=== PATIENT | female | born 1955 | race Caucasian/White ===

== ENCOUNTER 2017-03-31 09:16 | Inpatient (IN) ==
[2017-03-31] MEDS ORDERED: CeFAZolin Syr 2,000MG/20 ML 2,000 MG/20 ML SYRINGE IVPB ONE (09:37)
[2017-03-31] MEDS ORDERED: Lidocaine -MPF 1% 2 ML VIAL ID ONE (09:37)
[2017-03-31] MEDS ORDERED: Albuterol 2.5 MG/3 ML NEBULIZER IH ONE (09:37)
[2017-03-31] MEDS ORDERED: Ringers Solution, Lactated 1,000 ML IVC SCH ×2 (09:45→16:44)
[2017-03-31] MEDS ORDERED: *HR* Promethazine 25 MG/ML VIAL IVP PRN (10:14)
[2017-03-31] MEDS ORDERED: *HR* Labetalol 20 MG/4 ML SYRINGE IVP PRN (10:14)
[2017-03-31] MEDS ORDERED: *HR* HYDROmorphone (PF) 1 MG/ML SYRINGE IVP PRN (10:14)
[2017-03-31] MEDS ORDERED: *HR* FentaNYL (PF) 100 MCG/2 ML VIAL ONE (10:16)
[2017-03-31] MEDS ORDERED: *HR* Propofol 200 MG/20 ML VIAL IVP ONE (10:17)
[2017-03-31] MEDS ORDERED: *HR* Midazolam HCl 2 MG/2 ML VIAL ONE ×2 (10:17→12:14)
[2017-03-31] MEDS ORDERED: Lidocaine -MPF 2% 2 ML VIAL ONE (10:18)
--- NOTE | 2017-03-31 10:19 | Anesthesia Evaluation PreOp ---
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 History: CVA Other Medical History: Diabetes Type II, GERD, Other Anesthesia History: No Prior Anesthetic Complications, Past Anesthesia : No Alcohol Use: none Drug use: marijuana Medications and Allergies Aspirin Enteric Coated [Aspirin EC] 81 mg PO DAILY 01/23/15 [History] Calcium Carbonate/Vitamin D2 [Ra Oyster Shell-Vitamin D Tab] 1 tab PO BID [History] Carvedilol 3.125 mg PO BID 12/24/15 [History] Cholecalciferol (D-3) [Vitamin D] 2,000 unit PO DAILY 12/24/15 [History] Fenofibrate [Lofibra] 160 mg PO DAILY 12/24/15 [History] Fluticasone Propionate Nasal [Flonase] 50 mcg NS DAILY 12/24/15 [History] Isosorbide MONOnitrate (24 HR) [Imdur] 30 mg PO DAILY 12/24/15 [History] Lisinopril [Zestril] 40 mg PO DAILY 12/24/15 [History] Meloxicam 15 mg PO DAILY 12/24/15 [History] Montelukast [Singulair] 10 mg PO DAILY 12/24/15 [History] Omeprazole [PriLOSEC] 20 mg PO DAILY 12/24/15 [History] Sertraline [Zoloft] 100 mg PO DAILY 12/24/15 [History] Simvastatin [Zocor] 40 mg PO DAILY 12/24/15 [History] hydroCHLOROthiazide [Hydrochlorothiazide] 25 mg PO DAILY 12/24/15 [History] metFORMIN [Glucophage] 1,000 mg PO BIDWM 12/24/15 [History] HYDROcodone/Acet 5/325 mg [[place] 5-325 mg] 1 tab PO Q6H PRN #15 tab 04/26/16 [Rx ] Ciprofloxacin [Cipro] 500 mg PO BID #20 tablet 05/09/16 [Rx] Promethazine/Dextromethorphan [Promethazine-Dm Syrup] 5 ml PO Q4-6H #240 syrup 05/09/16 [Rx] 3 Allergy/AdvReac Type Severity Reaction Status Date / Time No Known Allergies Allergy Verified 03/24/17 11:55 - Meds/Allergy Pre-op Review Medications Reviewed: Yes Allergies Reviewed: Yes Beta Blockers on Current Med List: Yes If Beta Blockers taken, Date/Time (Last Dose taken): 08:00 03/31/2017 Anesthesia Results - Labs Laboratory Tests 03/14/17 03/14/17 03/24/17 10:57 10:57 12:48 WBC 9.1 Hgb 14.1 Hct 43.3 Plt Count 344 INR 0.9 Sodium 139 Potassium 4.0 Chloride Carbon Dioxide BUN Creatinine 1.09 03/24/17 12:48 WBC Hgb Hct Plt Count INR Sodium Potassium Chloride 108 H Carbon Dioxide 23 BUN 13 Creatinine Echo 05/11/13 EF-55% Mild diastolic dysfunction No pulm Htn Normal wall motion - Imaging EKG: report reviewed (SR) Anesthesia Exam Vital Signs/O2 Sat, Most Current Temp Pulse Resp BP Pulse Ox 98.3 F 73 18 136/85 94 03/31/17 09:51 03/31/17 09:51 03/31/17 09:51 03/31/17 09:51 03/31/17 09:51
[2017-03-31] MEDS ORDERED: *HR* Rocuronium Bromide 50 MG/5 ML VIAL ONE (10:20)
[2017-03-31] MEDS ORDERED: Bacitracin 50,000 UNIT, Polymyxin B Sulfate 500,000 UNIT, Sodium Chloride IRRigation 1,... IR ONE (11:15)
--- NOTE | 2017-03-31 12:22 | History & Physical Report ---
Date of Encounter: 03/31/17 Time of Encounter: 12:21 24 Hour HP Update - Instructions Instructions: If the History and Physical is less than 30 days old and was completed prior to A.M. admission and or procedure and has NOT been updated on calendar day of procedure please complete this update prior to performing procedure. - Update Patient reports changes in Medical Condition: No Changes in examination, assessment, or condition: No Changes in Medication: No Preop tests/diagnostics Reviewed: Yes Pre-Op MRSA Screen: Negative Surgery Remains Indicated: Yes Consent for Planned Operative Procedure(s) Verified: Yes - Pre-Operative Checklist Preoperative Checklist Indicated: No Prophylactic Antibiotic Ordered: Yes Home Medications Include Beta Gudelia: Yes Beta Gudelia Taken Today (Day of Surgery): No Beta Gudelia Taken Yesterday (Day Prior to Surgery): Yes Is VTE Prophylaxis Indicated?: Yes
[2017-03-31] MEDS ORDERED: Acetaminophen IV 1,000 MG/100 ML INFUS..BTL ONE (12:39)
[2017-03-31] MEDS ORDERED: *HR* PHENYLEPHRINE 1,000 MCG/10 ML SYRINGE IVP ONE (12:40)
[2017-03-31] MEDS ORDERED: Propofol 500 MG/50 ML INFUS..BTL ONE (12:41)
[2017-03-31] MEDS ORDERED: *HR* Remifentanil 2 MG VIAL IVP ONE (12:41)
[2017-03-31] MEDS ORDERED: Ondansetron 4 MG/2 ML VIAL ONE (13:22)
[2017-03-31] MEDS ORDERED: Dexamethasone 4 MG/ML VIAL ONE ×2 (13:22→17:00)
[2017-03-31] MEDS ORDERED: *HR* Magnesium Sulfate 1 GM/2 ML VIAL ONE (14:30)
[2017-03-31] MEDS ORDERED: Ketorolac 30 MG/ML VIAL ONE (15:08)
[2017-03-31] MEDS ORDERED: Neostigmine Methylsulfate 3 MG/3 ML SYRINGE ONE (15:17)
[2017-03-31] MEDS ORDERED: *HR* HYDROmorphone 2 MG/ML SYRINGE ONE (15:25)
--- NOTE | 2017-03-31 15:47 | Orthopedic Operative Note ---
Date of procedure: 03/31/17 Pre-op diagnosis: Synovial cyst of lumbar facet joint, lumbar radiculopathy Post-op diagnosis: same Operation/Findings: Instrumented posterior spinal fusion L5-S1: The patient successfully underwent general endotracheal anesthesia. The patient was given antibiotics prior to the start of the procedure. Compression boots and stockings were used for deep vein thrombosis prophylaxis. A Walker catheter was placed. Leads for neuro monitoring were placed on the upper and lower extremities. This included the cranium. The neuro monitoring personnel confirmed there were satisfactory readings prior to the start of the procedure. The patient was turned prone on the Beto table. The back was prepped and draped in the usual sterile fashion. An incision was was marked and centered over the involved L5-S1 levels in the mid line. The incision was deepened through the lumbar fascia. Bovie cautery and Boland elevators were used to reflect the paraspinal musculature at the lateral extent of the transverse processes of the involved L5 and S1 levels. Meagan clamps were placed over the L5 spinous process. An intraoperative lateral fluorograph was obtained. A conversation was held between the surgeon and radiologist and both confirmed we had the correct operative levels. We then placed pedicle screws in standard fashion with the aid of fluoroscopy and anatomic landmarks. Briefly a starter awl was used. A gearshift was subsequently used to enter the corporate pilot hole via a transpedicular route into the vertebral body. The corporate pilot hole was tapped with an undersized instrument, and subsequently two 6.5 x 40 mm pedicle screws were placed unilaterally on the left side at the indicated L5-S1 level. The screws were tested with the aid of the neurologic monitoring staff via pedicle screw stimulation. All reading suggested there was no significant cortical wall breech. The screws were also evaluated fluoro- graphically and appeared to be in satisfactory position. We then turned our attention to the decompression portion of the procedure. We removed the supraspinous and interspinous ligaments and subsequently the insertion of the ligamentum flavum on the undersurface of the proximal L5 lamina was dislodged with a curette. We then removed the ligamentum flavum as well as undercut L5-S1 the facets at this level to decompress the lateral recesses. We also performed a L5 laminectomy. There was an extremely large synovial facet joint cyst on the right at L5-S1 impinging the thecal sac and traversing nerve root. This was removed and the facets were undercut at this level. After the decompression the foramen and traversing roots at this L5-S1 level were found to be free and patent. We also took part of the medial facets in order to aid in the decompression. . We then copiously irrigated the wound. We then decorticated the transverse processes at L5 and the proximal portion of the sacrum as well as the L5-S1 facet joints of the involved 5 S1 levels to aid in the posterolateral fusion. We placed autograft bone in the lateral gutters over these regions. We then placed rods within the screw heads of the involved L5-S1 levels and first locked the distal screws and then subsequently locked the proximal screws.s We then closed the wound in layers with 1 Vicryl for the fascia, 2-0 Vicryl. Subcutaneous tissue, and Dermabond was used for skin closure. Sterile dressings were placed over the wound. The patient was turned supine on a hospital bed and extubated. All sponge instruments and needle counts were correct at the end of the procedure. The patient tolerated the procedure well without complications. Anesthesia: KOKO Surgeon: Wes Lopez Jr Was there an assistant office manager present: No Estimated blood loss (cc): 125 Specimen: None Condition: stable Disposition: PACU
--- NOTE | 2017-03-31 16:33 | Anesthesia Evaluation Post Op ---
Date of Encounter: 03/31/17 Time of Encounter: 16:33 - Vital Signs Vital Signs: Vital Signs/O2 Sat, Most Current Temp Pulse Resp BP Pulse Ox 98.0 F 72 18 149/72 96 03/31/17 16:24 03/31/17 16:24 03/31/17 16:24 03/31/17 16:24 03/31/17 16:24 - Lungs Lungs: Clear Ascult./Percussion - Airway Airway: Non-obstructed - Cardiovascular Regular Rate - Mental Status Mental Status: Alert & Oriented, Answers Appropriately - Pain Pain Scale: 4 Pain Scale used: Numeric (1 - 10) - Nausea Vomiting Nausea Vomiting: Not Present - Hydration Hydration: Ice chips, Walker catheter - Discharge PostOp Status: Transfer Patient to floor
[2017-03-31] MEDS ORDERED: Naloxone 0.4 MG/ML INJ IVP PRN (16:44)
[2017-03-31] MEDS ORDERED: CeFAZolin Premix DUPLEX 2,000 MG/50 ML BAG IVPB SCH (16:44)
[2017-03-31] MEDS ORDERED: Ondansetron 4 MG/2 ML VIAL IVP PRN (16:44)
[2017-03-31] MEDS ORDERED: Acetaminophen 325 MG TABLET PO PRN (16:44)
[2017-03-31] MEDS: *HR* Metformin 500 MG TABLET PO SCH (17:25)
[2017-03-31] MEDS: VITAMIN D2 PO SCH (20:38)
[2017-03-31] MEDS: CALCIUM CARBONATE PO SCH (20:38)
[2017-03-31] MEDS: *HR* OxyCODONE Immed Rel 5 MG TABLET PO PRN (21:51)
[2017-04-01] MEDS: Vancomycin 1,000 MG in D5% in Water 250 ML IVPB SCH ×2 (00:33→12:26)
[2017-04-01] MEDS: *HR* OxyCODONE Immed Rel 5 MG TABLET PO PRN ×3 (04:02→17:11)
[2017-04-01 07:10] LABS: Basophils % 0.2 %; Eosinophils % 0.1 %; Hematocrit 32.6 % (35.3-44.9); Hemoglobin 10.7 g/dL (11.5-15.4); Immature Granulocytes % 0.3 % (0-4); Lymphocytes # 3.3 K/mcL (0.6-4.6); Lymphocytes % 25.1 %; Mean Corpuscular HGB Conc 32.8 g/dL (31.6-35.5); Mean Corpuscular Hemoglobin 29.2 pg (28.0-33.3); Mean Corpuscular Volume 88.8 fL (83.0-100.0); Mean Platelet Volume 9.4 fL (9.4-12.4); Neutrophils # 8.6 K/mcL (1.6-8.9); Platelet Count 253 K/mcL (140-400); Red Blood Count 3.67 M/mcL (3.82-4.97); Red Cell Distribution Width 13.6 % (11.5-14.5); Segmented Neutrophils % 66.3 %
[2017-04-01 07:27] LABS: BUN/Creatinine Ratio 16 (6-26); Blood Urea Nitrogen 13 mg/dL (8-23); Calcium 8.3 mg/dL (8.6-10.3); Carbon Dioxide 23 mEq/L (23-29); Chloride 110 mEq/L (98-107); Glucose 135 mg/dL (70-105); Osmolality,Calculated 286 (280-300); Potassium 4.4 mEq/L (3.5-5.1); Sodium 137 mEq/L (136-145); eGFR For African Americans > 60 (> 60); eGFR For Non-African Americans > 60 (> 60)
[2017-04-01] MEDS: *HR* Metformin 500 MG TABLET PO SCH ×2 (08:27→17:11)
[2017-04-01] MEDS: Fenofibrate 54 MG TABLET PO SCH (08:27)
[2017-04-01] MEDS: Cholecalciferol (D-3) 1,000 UNIT TABLET PO SCH (08:27)
[2017-04-01] MEDS: Aspirin Enteric Coated 81 MG Tablet PO SCH (08:27)
[2017-04-01] MEDS: CALCIUM CARBONATE PO SCH ×2 (08:28→21:07)
[2017-04-01] MEDS: VITAMIN D2 PO SCH ×2 (08:28→21:07)
[2017-04-01] MEDS: Fluticasone Propionate Nasal 50 MCG/SPRAY BOTTLE NS SCH (08:28)
[2017-04-01] MEDS: Lisinopril 20 MG TABLET PO SCH (08:28)
[2017-04-01] MEDS: hydroCHLOROthiazide 25 MG TABLET PO SCH (08:28)
[2017-04-01] MEDS: Isosorbide MONOnitrate (24 HR) 30 MG TAB.ER.24H PO SCH (08:28)
--- NOTE | 2017-04-01 15:33 | Spine Progress Note ---
Date of Encounter: 04/01/17 Time of Encounter: 15:32 Subjective Principal diagnosis: Status post lumbar fusion Interval history: The patient is without complaints. Afebrile vital signs are stable. Dressing is clean dry and intact. Neurovascularly intact with regard to bilateral lower extremities. Fires all upper and lower extremity motor groups. . Assessment : stable. Plan mobilize ,continue analgesics, discharge planning. Objective Vital signs: Vital Signs Temp Pulse Resp BP Pulse Ox 04/01/17 15:19 99.3 F 86 20 118/72 94 04/01/17 11:27 98.1 F 83 20 121/71 93 04/01/17 02:54 98.6 F 71 16 136/66 96 03/31/17 22:56 98.8 F 82 16 142/78 93 03/31/17 20:25 98.2 F 79 16 106/65 95 03/31/17 19:28 98.5 F 81 14 148/77 97 03/31/17 19:15 98.3 F 74 15 138/76 96 03/31/17 17:51 97.6 F 73 15 111/75 94 03/31/17 17:30 98.0 F 72 14 126/77 93 03/31/17 17:01 98.5 F 73 14 150/82 93 03/31/17 16:52 76 18 143/78 95 03/31/17 16:44 98.0 F 73 16 145/79 94 03/31/17 16:34 75 18 143/80 94 03/31/17 16:24 98.0 F 72 18 149/72 96 03/31/17 16:14 65 20 113/63 94 03/31/17 16:04 67 20 106/55 95 03/31/17 15:54 98.1 F 87 20 143/73 99 Intake and Output 03/31/17 04/01/17 04/01/17 23:59 07:59 15:59 Intake Total 1120 / 1120 250 / 250 Output Total 100 / 100 750 / 750 Balance 1020 / 1020 -500 / -500 Intake: IV Fluids 1000 / 1000 250 / 250 Lactated Ringers 1,000 ML @ 25 1000 / 1000 mls/hr IVC .[facility] Rx#: [id number] Vancocin 1,000 MG In Dextrose 5 250 / 250 % 250 ML @ 167 mls/hr IVPB Q12H [facility] Rx#:[id number] Oral 120 / 120 Output: Urine Amount (Catheter) 100 / 100 Catheter 0 / 0 750 / 750 Other: Percent of Meal Consumed 25% Blood Glucose* 136 116 129 - Labs CBC & BMP: 04/01/17 06:13 04/01/17 06:13 Labs: Abnormal lab results WBC 13.0 K/mcL (4.3-11.1) H 04/01/17 06:13 RBC 3.67 M/mcL (3.82-4.97) L 04/01/17 06:13 Hgb 10.7 g/dL (11.5-15.4) L 04/01/17 06:13 Hct 32.6 % (35.3-44.9) L 04/01/17 06:13 Chloride 110 mEq/L (98-107) H 04/01/17 06:13 Glucose 135 mg/dL (70-105) H 04/01/17 06:13 POC Glucose 129 (58-89) H 04/01/17 11:58 Calcium 8.3 mg/dL (8.6-10.3) L 04/01/17 06:13 Consult Discharge Plan - Plan Referrals: Rios Espinoza MD [Primary Care Provider] -
[2017-04-01] MEDS: *HR* Morphine 2 MG/ML SYRINGE IVP PRN (21:00)
[2017-04-02] MEDS: *HR* OxyCODONE Immed Rel 5 MG TABLET PO PRN ×2 (02:18→09:12)
[2017-04-02] MEDS: Fenofibrate 54 MG TABLET PO SCH (09:11)
[2017-04-02] MEDS: Isosorbide MONOnitrate (24 HR) 30 MG TAB.ER.24H PO SCH (09:11)
[2017-04-02] MEDS: Cholecalciferol (D-3) 1,000 UNIT TABLET PO SCH (09:11)
[2017-04-02] MEDS: Lisinopril 20 MG TABLET PO SCH (09:12)
[2017-04-02] MEDS: *HR* Metformin 500 MG TABLET PO SCH ×2 (09:12→17:17)
[2017-04-02] MEDS: Aspirin Enteric Coated 81 MG Tablet PO SCH (09:12)
[2017-04-02] MEDS: hydroCHLOROthiazide 25 MG TABLET PO SCH (09:12)
[2017-04-02] MEDS: VITAMIN D2 PO SCH ×2 (09:13→23:26)
[2017-04-02] MEDS: Fluticasone Propionate Nasal 50 MCG/SPRAY BOTTLE NS SCH (09:13)
[2017-04-02] MEDS: CALCIUM CARBONATE PO SCH ×2 (09:13→23:26)
[2017-04-02] MEDS: *HR* Morphine 2 MG/ML SYRINGE IVP PRN ×2 (10:43→21:23)
--- NOTE | 2017-04-03 08:09 | Spine Progress Note ---
Date of Encounter: 04/02/17 Time of Encounter: 17:10 Subjective Principal diagnosis: Status post lumbar fusion Interval history: The patient is without complaints. Afebrile vital signs are stable. Incision is clean dry and intact. Neurovascularly intact with regard to bilateral lower extremities. Fires all upper and lower extremity motor groups. . Assessment : stable. Plan mobilize ,continue analgesics, discharge planning. Objective Vital signs: Vital Signs Temp Pulse Resp BP Pulse Ox 04/03/17 07:51 98.5 F 85 16 155/71 94 04/03/17 04:49 99.1 F 89 16 138/85 93 04/03/17 00:47 99.3 F 91 17 156/76 93 04/02/17 20:16 98.5 F 88 18 148/81 93 04/02/17 14:25 98.4 F 87 16 147/81 98 04/02/17 11:45 98.6 F 84 16 150/71 97 Intake and Output 04/02/17 04/03/17 04/03/17 23:59 07:59 15:59 Intake Total 50 / 50 290 / 290 Output Total 375 / 375 Balance 50 / 50 -85 / -85 Intake: Oral 50 / 50 290 / 290 Output: Urine 375 / 375 Other: # Voids 1 Blood Glucose* 199 140 - Labs CBC & BMP: 04/01/17 06:13 04/01/17 06:13 Labs: Abnormal lab results WBC 13.0 K/mcL (4.3-11.1) H 04/01/17 06:13 RBC 3.67 M/mcL (3.82-4.97) L 04/01/17 06:13 Hgb 10.7 g/dL (11.5-15.4) L 04/01/17 06:13 Hct 32.6 % (35.3-44.9) L 04/01/17 06:13 Chloride 110 mEq/L (98-107) H 04/01/17 06:13 Glucose 135 mg/dL (70-105) H 04/01/17 06:13 POC Glucose 141 (58-89) H 04/03/17 07:48 Calcium 8.3 mg/dL (8.6-10.3) L 04/01/17 06:13 Consult Discharge Plan - Plan Referrals: Rios Espinoza MD [Primary Care Provider] -
[2017-04-03] MEDS: Fenofibrate 54 MG TABLET PO SCH (09:27)
[2017-04-03] MEDS: Aspirin Enteric Coated 81 MG Tablet PO SCH (09:28)
[2017-04-03] MEDS: Lisinopril 20 MG TABLET PO SCH (09:28)
[2017-04-03] MEDS: *HR* Metformin 500 MG TABLET PO SCH ×2 (09:29→15:54)
[2017-04-03] MEDS: Cholecalciferol (D-3) 1,000 UNIT TABLET PO SCH (09:29)
[2017-04-03] MEDS: Isosorbide MONOnitrate (24 HR) 30 MG TAB.ER.24H PO SCH (09:29)
[2017-04-03] MEDS: hydroCHLOROthiazide 25 MG TABLET PO SCH (09:29)
[2017-04-03] MEDS: *HR* OxyCODONE Immed Rel 5 MG TABLET PO PRN ×2 (09:29→15:54)
[2017-04-03] MEDS: CALCIUM CARBONATE PO SCH (09:30)
[2017-04-03] MEDS: Fluticasone Propionate Nasal 50 MCG/SPRAY BOTTLE NS SCH (09:30)
[2017-04-03] MEDS: VITAMIN D2 PO SCH (09:30)
[2017-04-03 17:22] VITALS: BP 107/58
--- NOTE | 2017-04-03 18:27 | Discharge Summary ---
Date of Encounter: 04/03/17 Time of Encounter: 18:25 - Discharge Diagnosis (1) Synovial cyst of lumbar facet joint Priority: Primary Status: Chronic (2) Lumbar radiculopathy Priority: Secondary Status: Chronic (3) Lumbar stenosis without neurogenic claudication Priority: Secondary Status: Chronic - Discharge Medications Prescriptions: OxyCODONE Immed Rel [Roxicodone 5 MG] 5 mg PO Q6HR PRN #30 tablet PRN Reason: Severe Pain Home Medications: Aspirin Enteric Coated [Aspirin EC] 81 mg PO DAILY 01/23/15 [History] Calcium Carbonate/Vitamin D2 [Ra Oyster Shell-Vitamin D Tab] 1 tab PO BID [History] Carvedilol 3.125 mg PO BID 12/24/15 [History] Cholecalciferol (D-3) [Vitamin D] 2,000 unit PO DAILY 12/24/15 [History] Fenofibrate [Lofibra] 160 mg PO DAILY 12/24/15 [History] Fluticasone Propionate Nasal [Flonase] 50 mcg NS DAILY 12/24/15 [History] Isosorbide MONOnitrate (24 HR) [Imdur] 30 mg PO DAILY 12/24/15 [History] Lisinopril [Zestril] 40 mg PO DAILY 12/24/15 [History] Meloxicam 15 mg PO DAILY 12/24/15 [History] Montelukast [Singulair] 10 mg PO HS 12/24/15 [History] Sertraline [Zoloft] 100 mg PO DAILY 12/24/15 [History] Simvastatin [Zocor] 40 mg PO HS 12/24/15 [History] metFORMIN [Glucophage] 1,000 mg PO BIDWM 12/24/15 [History] Omeprazole [PriLOSEC] 40 mg PO DAILY 03/31/17 [History] hydroCHLOROthiazide [Hydrochlorothiazide] 25 mg PO DAILY 03/31/17 [History] OxyCODONE Immed Rel [Roxicodone 5 MG] 5 mg PO Q6HR PRN #30 tablet 04/03/17 [Rx] Allergies/Adverse Reactions: 3 Allergy/AdvReac Type Severity Reaction Status Date / Time No Known Allergies Allergy Verified 03/31/17 10:35 Labs on day of discharge: Labs from last 24 hours 04/03/17 04/02/17 07:48 20:19 POC Glucose 141 H 199 H - Impressions ITS Impressions Lumbar Spine X-Ray 03/31/17 00:00 IMPRESSION: Interval L5-S1 posterior fusion without evidence of subluxation. Hardware appears intact. D/ / Keith Tobin / Keith Tobin Interpreting Provider: Keith Tobin Lumbar Spine X-Ray 04/03/17 08:10 IMPRESSION: 1. Status post L5-S1 fusion with left-sided pedicle screws in stable alignment, demonstrating a mild grade 1 anterolisthesis. 2. Dilated small bowel loops may be related to an ileus or a developing small bowel obstruction. The findings were sent to the Radiology Results Communication Center at 2:37 pm on 04/03/2017to be communicated to a licensed caregiver. D/ / 04/03/2017 14:41:09 Drew Norwood MD / [facility] Interpreting Provider: Drew Norwood MD Date of admission: 03/31/17 16:42 Primary care physician: Rios Espinoza MD Consults: 03/31/17 16:44 Consult to Occupational Therapy [CONS] Routine Comment: Evaluate, develop and implement POC Reason for Consult: Postoperative rehabilitation Consult to Physical Therapy [CONS] Routine Comment: Evaluate, develop and implement POC Reason for Consult: Postoperative rehabilitation Consult to Spine Navigator [CONS] [CONS] Routine - Patient Status Disposition: Home, Self-Care Condition: Good Functional capacity at discharge: independent ambulation Overall status at discharge: patient is progressing back to baseline - Discharge Instructions Follow Up With: Rios Espinoza MD [Primary Care Provider] - - Diet and Activity Activity: as per physical therapy Diet: advance to your usual diet - Hospital Course Hospital course: Ms. Hess is a 61 year old female The patient had an uneventful postoperative course. Progressed from intravenous analgesic needs to oral analgesic needs only. Remained neurovascularly intact and mobilized satisfactorily. All intraoperative and/or postoperative radiographic studies were satisfactory. Patient is discharged with plan for rehabilitation and follow-up in 2 weeks post discharge on analgesic medication and patient's home medications. - Time Spent with Patient Total time spent providing and/or coordinating discharge services: - VTE Documentation of Mechanical Device: Intermittent pneumatic compression device
[2017-04-03] MEDS ORDERED: Cholecalciferol (D-3) 1,000 UNIT TABLET PO SCH (21:00)
== END 2017-04-03 19:45 | disposition home or self-care (01) | DRG 304 ==
LOC: SAMDAY 09:16 → 3NENU 16:42
PROVIDERS: ADMIT Orthopaedic Surgery Orthopaedic Surgery of the Spine; ATTEND Orthopaedic Surgery Orthopaedic Surgery of the Spine

== ENCOUNTER 2017-12-02 07:23 | Inpatient (IN) ==
--- NOTE | 2017-12-01 23:35 | Discharge Summary ---
<Jaycob Davis - Last Filed: 12/02/17 07:44> Orders not resulted at time of discharge: Pending orders 12/02/17 00:01 XR shoulder complete RT [XR] Routine H/H [Hemoglobin and Hematocrit] [HEME] Routine Date of Encounter: 12/02/17 - Discharge Diagnosis (1) Rotator cuff arthropathy of right shoulder Priority: Primary Status: Chronic (2) Status post reverse total arthroplasty of right shoulder Priority: Primary Status: Acute (3) COPD (chronic obstructive pulmonary disease) Priority: Secondary Status: Chronic Qualifiers: COPD type: unspecified COPD Qualified Code(s): J44.9 - Chronic obstructive pulmonary disease, unspecified (4) Diabetes mellitus type 2 with complications Priority: Secondary Status: Chronic Qualifiers: Diabetes mellitus community advocate insulin use: unspecified community advocate insulin use status Qualified Code(s): E11.8 - Type 2 diabetes mellitus with unspecified complications (5) Essential hypertension Priority: Secondary Status: Chronic (6) Lumbar radiculopathy Priority: Secondary Status: Chronic (7) Lumbar stenosis without neurogenic claudication Priority: Secondary Status: Chronic (8) Mixed hyperlipidemia Priority: Secondary Status: Chronic (9) JOJO (obstructive sleep apnea) Priority: Secondary Status: Chronic (10) Smoker Priority: Secondary Status: Chronic (11) Synovial cyst of lumbar facet joint Priority: Secondary Status: Chronic - Hospital Course Hospital course: Ms. Hess is a 62 year old female - Time Spent with Patient Total time spent providing and/or coordinating discharge services: - Discharge Medications Home Medications: Aspirin Enteric Coated [Aspirin EC] 81 mg PO DAILY 01/23/15 [History] Calcium Carbonate/Vitamin D2 [Ra Oyster Shell-Vitamin D Tab] 1 tab PO BID [History] Carvedilol 3.125 mg PO BID 12/24/15 [History] Cholecalciferol (D-3) [Vitamin D] 2,000 unit PO DAILY 12/24/15 [History] Fluticasone Propionate Nasal [Flonase] 50 mcg NS DAILY 12/24/15 [History] Lisinopril [Zestril] 40 mg PO DAILY 12/24/15 [History] Sertraline [Zoloft] 100 mg PO DAILY 12/24/15 [History] Simvastatin [Zocor] 40 mg PO HS 12/24/15 [History] Omeprazole [PriLOSEC] 40 mg PO DAILY 03/31/17 [History] OxyCODONE Immed Rel [Roxicodone 5 MG] 5 mg PO Q6HR PRN 7 Days #28 tablet [Rx] Acetaminophen [Tylenol Arthritis] 650 mg PO Q6H PRN 12/02/17 [History] Albuterol Sulfate [Albuterol Inhaler] 2 puff IH Q4H PRN 12/02/17 [History] Fenofibrate Nanocrystallized [Triglide] 160 mg PO DAILY 12/02/17 [History] Gabapentin [Neurontin] 300 mg PO TID 12/02/17 [History] Metformin HCl [Glucophage] 1,000 mg PO BID 12/02/17 [History] Nitroglycerin 1 tab PO AD 12/02/17 [History] [place]-3/Dha/Epa/Fish Oil [Fish Oil 1,000 mg Softgel] 1 each PO DAILY 12/02/17 [ History] Omeprazole [PriLOSEC] 40 mg PO DAILY 12/02/17 [History] Promethazine [Phenergan] 25 mg PO Q6HR PRN 12/02/17 [History] Tizanidine HCl [Zanaflex] 4 mg PO TID PRN 12/02/17 [History] Umeclidinium [place] [Incruse Ellipta] 62.5 mcg IH DAILY 12/02/17 [History] hydrOXYzine HCl [Hydroxyzine HCl] 100 mg PO HS 12/02/17 [History] Allergies/Adverse Reactions: 3 Allergy/AdvReac Type Severity Reaction Status Date / Time No Known Allergies Allergy Verified 12/02/17 08:30 Primary care physician: Carmen Espinoza - Patient Status Disposition: Home Health Service Condition: Good - Discharge Instructions Instructions: Joint Replacement Surgery (GEN) Follow Up With: Carmen Espinoza [Primary Care Provider] - Additional Instructions: Discharge Instructions: Total Shoulder Please call [facility] ([phone]), your Primary Care Physician, or report to the Emergency Room if you have any of the following symptoms: Nausea, vomiting, fever greater that 101.5, swelling, chest pain, shortness of breath, increased pain/redness/drainage/odor for your incision site, numbness/ tingling, or any other concerning symptoms. ACTIVITY: Always keep your arm in the sling. Do not raise your arm away from your body. Do not use your arm to help with getting in or out of bed. No weight bearing permitted. Only perform those exercises given to you by your therapist. Incentive Spirometer 10 times an hour. MEDICATIONS: Upon discharge resume your home medications. Take all the medications as prescribed. Take a stool softener if taking narcotic pain medications. Stool softeners are only effective if you drink enough fluids. Drink 6-8 glass of water or fluids a day, unless this is not allowed for another health problem. Despite using stool softeners, if you haven't had a bowel movement in 3 days, please switch to a gentle laxative. Gentle laxatives are sold over the counter. You should have a bowel movement within 24 hours, if not call the office. You will be discharged from the hospital with a prescription for pain medication. You are encouraged to decrease the use of narcotic pain medication as tolerated. Should you require a refill, please call the office. [facility] prescribes narcotic pain medication for only 4-6 weeks after surgery. If you require pain medication beyond this time period, you may be referred to your Primary Care Physician or to the Pain Clinic for further evaluation. Plan ahead for refills on pain medication as many narcotics either need to be picked up at the office or mailed. It is best to call 48-72 hours in advance of needing a prescription refill so you don't run out of medication. To help control the post-operative pain, you may take NSAIDs (Aleve,Advil, Motrin, Ibuprofen, Naprosyn) or Tylenol as prescribed on the bottle in addition to the pain medication. WOUND CARE: Leave the dressing on for 7-10 days. You may change the dressing if it becomes saturated greater than 50%. Do not get the dressing wet at anytime. Wash your hands with antibacterial soap, rinse and dry prior to any wound care. If you have dustin the visiting nurse or rehab facility can remove the stapes 10-14 days after surgery and place steri-strips across the wound. Leave the steri-strips in place until they fall off on their own. You may let water from the shower run on top of the steri-strips. If you do not have a visiting nurse or rehab facility, you will need to return to the office at 10-14 days for the dustin to be removed. If you have itching or redness around the dressing call the office. FOLLOW-UP: Please follow up with your surgeon in the orthopedic clinic, as scheduled <Catie Wang - Last Filed: 12/03/17 16:30> - NOTES TO OUTPATIENT PROVIDER Notes to Outpatient Provider: Please follow up on Hypertension, uncontrolled Orders not resulted at time of discharge: Pending orders 12/02/17 00:01 XR shoulder complete RT [XR] Routine H/H [Hemoglobin and Hematocrit] [HEME] Routine Date of Encounter: 12/03/17 Time of Encounter: 07:49 - Discharge Diagnosis (1) Status post reverse total arthroplasty of right shoulder Priority: Primary Status: Acute Comments: Opsite dressing, leave intact until first post-operative visit. Zipline in place , plan to remove at post-operative day #14-16. If dressing becomes >50% saturated, contact office, remove dressing and place appropriate dressing in its place. Do not allow for dressing to get wet. Shoulder Precautions x 6 weeks. Apply cold therapy wrap 3-6x/day for 20 minutes at a time. Encourage ambulation throughout the day. Use Incentive spirometer 10x/hour. Elevate affected extremity above heart as tolerated. NWB to affected upper extremity x 6 weeks. Will remove brace at first post-operative appointment. OK to remove during PT/ OT and Home exercises. (2) Rotator cuff arthropathy of right shoulder Priority: Primary Status: Chronic (3) COPD (chronic obstructive pulmonary disease) Priority: Secondary Status: Chronic Qualifiers: COPD type: unspecified COPD Qualified Code(s): J44.9 - Chronic obstructive pulmonary disease, unspecified (4) Smoker Priority: Secondary Status: Chronic (5) JOJO (obstructive sleep apnea) Priority: Secondary Status: Chronic (6) Mixed hyperlipidemia Priority: Secondary Status: Chronic (7) Diabetes mellitus type 2 with complications Priority: Secondary Status: Chronic Qualifiers: Diabetes mellitus community advocate insulin use: unspecified shelter insulin use status Qualified Code(s): E11.8 - Type 2 diabetes mellitus with unspecified complications (8) Essential hypertension Priority: Secondary Status: Chronic Comments: 1) Essential hypertension Current Visit: No Status: Chronic Assessment and plan: Review of the EMR during this patients hospitalization reveals systolic pressures between 130s and 180 on average diastolics generally controlled. Patient is blood pressure however late this morning elevated to 184/112. Patient and significant other thinks secondary to pain after physical therapy. She was given a dose of hydralazine 10 mg IV at approximately 1400 and blood pressure at approximately 1530 was 149/87 Continue to monitor on patient's home regimen with lisinopril 40 mg daily and Coreg 3.125 mg twice daily. Pain control continued by orthopedics - Hospital Course Hospital course: Ms. Hess is a 62 year old female status post Right TSR-r 12/02 Patient had uneventful postoperative course, with the exception of hypertension. Consult was placed to hospitalist: Review of the EMR during this patients hospitalization reveals systolic pressures between 130s and 180 on average diastolics generally controlled. Patient is blood pressure however late this morning elevated to 184/112. Patient and significant other thinks secondary to pain after physical therapy. She was given a dose of hydralazine 10 mg IV at approximately 1400 and blood pressure at approximately 1530 was 149/87 Continue to monitor on patient's home regimen with lisinopril 40 mg daily and Coreg 3.125 mg twice daily. Pain control continued by orthopedics She does follow PCP for this and is on current BP medication. Asympt at this time. Stable for discharge. Patient seen at bedside, without complaints. A&O x 3 Afebrile, difficulty with BP management - Hospitalist consulted. Vital Signs Temp Pulse Resp BP Pulse Ox 12/03/17 15:37 97.8 F 103 16 149/87 94 12/03/17 10:39 97.8 F 78 20 184/103 95 12/03/17 10:23 184/112 12/03/17 08:21 159/81 12/03/17 07:12 98.6 F 78 16 177/97 94 12/03/17 04:26 97.6 F 64 18 142/72 96 12/02/17 22:54 98.2 F 63 17 156/90 95 12/02/17 19:03 98.6 F 73 17 152/75 95 Intake and Output 12/03/17 12/03/17 12/03/17 07:59 15:59 23:59 Intake Total 375 / 375 340 / 340 Output Total 250 / 250 Balance 125 / 125 340 / 340 Intake: Oral 375 / 375 340 / 340 Output: Urine 250 / 250 Other: Meal Lunch Percent of Meal Consumed 40% # Voids 1 Weight 67.2 kg Blood Glucose* 192 218 Patient Weight 12/03/17 23:59 Weight 67.2 kg \ Patient Weight 12/03/17 23:59 Weight 67.2 kg Labs reviewed. H/H - stable, asymptomatic Short CBC 12/03/17 12/02/17 Range/Units 01:00 11:53 Hgb 12.4 D 14.0 (11.5-15.4) g/dL Hct 37.3 43.4 (35.3-44.9) % Pain control: adequate Participating in PT. All questions and concerns addressed. Educated on use of incentive spirometer. Encouraged ambulation and proper hydration. Patient educated on post-operative restrictions and post-operative care. Assessment and plan: Continue with postoperative care HTN: follow up with PCP 12/04 for home medication reviewed Swelling: Right shoulder; XRAY obtained - stable. Discharge plan: Home , discharge today with - Time Spent with Patient Total time spent providing and/or coordinating discharge services: Date of admission: 12/02 Primary care physician: Carmen Espinoza Discharging clinician: Catie Wang Anticipated date of discharge: 12/03/17 - Patient Status Functional capacity at discharge: independent ambulation Overall status at discharge: patient is progressing back to baseline - Diet and Activity Activity: as per physical therapy
[2017-12-02] MEDS ORDERED: CeFAZolin Syr 2,000MG/20 ML 2,000 MG/20 ML SYRINGE IVPB ONE (07:35)
[2017-12-02] MEDS ORDERED: Albuterol 2.5 MG/3 ML NEBULIZER IH ONE (07:35)
--- NOTE | 2017-12-02 07:42 | History & Physical Report ---
Date of Encounter: 12/02/17 Time of Encounter: 07:41 24 Hour HP Update - Instructions Instructions: If the History and Physical is less than 30 days old and was completed prior to A.M. admission and or procedure and has NOT been updated on calendar day of procedure please complete this update prior to performing procedure. - Update Patient reports changes in Medical Condition: No Changes in examination, assessment, or condition: No Changes in Medication: No Preop tests/diagnostics Reviewed: Yes Surgery Remains Indicated: Yes Consent for Planned Operative Procedure(s) Verified: Yes - Pre-Operative Checklist Preoperative Checklist Indicated: No Prophylactic Antibiotic Ordered: Yes Is VTE Prophylaxis Indicated?: Yes
[2017-12-02] MEDS ORDERED: Ringers Solution, Lactated 500 ML IVC SCH (07:45)
--- NOTE | 2017-12-02 08:00 | Anesthesia Evaluation PreOp ---
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 History: CVA (no residual deficits per pt) Other Medical History: Diabetes Type II Anesthesia History: No Prior Anesthetic Complications, Past Anesthesia (PLIF L5- S1, jaw sx, plate inserted R side of head, L foot, bladder sling) Alcohol Use: none Drug use: marijuana Medications and Allergies Aspirin Enteric Coated [Aspirin EC] 81 mg PO DAILY 01/23/15 [History] Calcium Carbonate/Vitamin D2 [Ra Oyster Shell-Vitamin D Tab] 1 tab PO BID [History] Carvedilol 3.125 mg PO BID 12/24/15 [History] Cholecalciferol (D-3) [Vitamin D] 2,000 unit PO DAILY 12/24/15 [History] Fenofibrate [Lofibra] 160 mg PO DAILY 12/24/15 [History] Fluticasone Propionate Nasal [Flonase] 50 mcg NS DAILY 12/24/15 [History] Isosorbide MONOnitrate (24 HR) [Imdur] 30 mg PO DAILY 12/24/15 [History] Lisinopril [Zestril] 40 mg PO DAILY 12/24/15 [History] Meloxicam 15 mg PO DAILY 12/24/15 [History] Montelukast [Singulair] 10 mg PO HS 12/24/15 [History] Sertraline [Zoloft] 100 mg PO DAILY 12/24/15 [History] Simvastatin [Zocor] 40 mg PO HS 12/24/15 [History] metFORMIN [Glucophage] 1,000 mg PO BIDWM 12/24/15 [History] Omeprazole [PriLOSEC] 40 mg PO DAILY 03/31/17 [History] hydroCHLOROthiazide [Hydrochlorothiazide] 25 mg PO DAILY 03/31/17 [History] Lidocaine Patch [Lidoderm 5% patch] 1 each TP DAILY PRN #7 adh..patch 07/27/17 [ Rx] predniSONE [PredniSONE] 20 mg PO BID #10 tablet 07/27/17 [Rx] OxyCODONE Immed Rel [Roxicodone 5 MG] 5 mg PO Q6HR PRN 7 Days #28 tablet [Rx] 3 Allergy/AdvReac Type Severity Reaction Status Date / Time No Known Allergies Allergy Verified 11/26/17 15:32 - Meds/Allergy Pre-op Review Medications Reviewed: Yes Allergies Reviewed: Yes Beta Blockers on Current Med List: Yes If Beta Blockers taken, Date/Time (Last Dose taken): 199912/01/17 Anesthesia Results - Labs Laboratory Tests 11/26/17 11/26/17 11/26/17 15:44 15:44 15:44 WBC 9.6 Hgb 14.8 Hct 44.6 Plt Count 316 PT 11.0 INR 1.0 APTT 32.5 Sodium 138 Potassium 3.9 Chloride 107 Carbon Dioxide 25 BUN 12 Creatinine 0.92 Est Mean Plasma Glucose 11/26/17 15:44 WBC Hgb Hct Plt Count PT INR APTT Sodium Potassium Chloride Carbon Dioxide BUN Creatinine Est Mean Plasma Glucose 143 - Imaging EKG: report reviewed (SINUS RHYTHM Electronically Signed On 03-26-2017 7:45:30 EST by Luis F De La Torre DO) Anesthesia Exam O2 Sat Height 1.55 m Height 1.55 m Weight 67.132 kg Weight 67.132 kg O2 Sat by Pulse Oximetry 94 O2 Sat by Pulse Oximetry 94 Vital Signs Temp Pulse Resp BP Pulse Ox 98.9 F 80 18 143/83 94 12/02/17 07:37 12/02/17 07:37 12/02/17 07:37 12/02/17 07:37 12/02/17 07:37 - HEENT Pupil (Motor): Pupils equal, EOMI Mallampati: III Teeth: Edentulous Oral Opening: Less than or equal to 3 - GENERATOR WORKER LOC: Oriented GENERATOR WORKER Motor: Normal RUE, Normal LUE, Normal RLE, Normal LLE, Normal Face GENERATOR WORKER Sensory: Normal: RUE, LUE, RLE, LLE, Face - Cardiac Rhythm: Regular - Pulmonary Breath Sounds: bilateral Clear Respiratory Effort: Symmetrical Anesthesia Assess/Plan ASA Score: 3 Modified [place] Scale for Level of Consciousness: Cooperative, oriented, and tranquil Anesthetic Plan: General, Regional (R brachial plexus nn block) Monitoring Plan: Standard Monitors Recovery Plan: PACU
[2017-12-02] MEDS ORDERED: Acetaminophen IV 1,000 MG/100 ML INFUS..BTL ONE (08:05)
[2017-12-02] MEDS ORDERED: ROPIVACAINE HCL/PF 0.5% 30 ML VIAL ONE (08:26)
[2017-12-02] MEDS ORDERED: Bupivacaine/Clonidine Syringe 1 EACH SYRINGE ONE (08:26)
--- NOTE | 2017-12-02 09:10 | Anesthesia Procedures ---
Date of Encounter: 12/02/17 Time of Encounter: 08:52 Procedures: Anesthesia - Nerve Block Procedure Date: 12/02/17 Time: 08:52 Allergies/Adv Reactions: NKDA Surgical Procedure: R Total Shoulder Arthroplasty Checklist: Correct Patient Identifier, Correct procedure, History checked Correct side: Right Blood Thinner: No Monitor Applied: EKG, BP, Pulse Oximetry Supplemental Oxygen via Nasal Cannula (L/min): 2 Sedation: Versed (mg): 2 Sedation: Fentanyl (mcg): 50 Indication: Post Op Analgesia Pre-op Neuro Deficits: No Block Type: Supraclavicular, Other (Intercostobracheal and Intermediate Cervical Plexus) Catheter placed: No Sterile Technique: Yes Ultrasound used: Yes Anatomy identified: Yes Visual spread of Local: Yes Neuro Stimulation: Yes Nerve Stimulator Range: 0.2 - 0.4 mA Blood on Needle Aspiration: No Smooth Injection of Local: Yes Pain with Injection of Local: No Prep: Chlorhexadine Needle: 22 x 50 mm Stimuplex Local: 0.25% Bupivicaine w/Clonidine 20 mcg/cc (8mL Intermediate Cervical Plexus and 12mL Intercostobracheal. ), Ropivacaine (30mL 0.5% Ropivacaine with 8mg of decadron for Supraclavicular block) Number of Attempts: 1 Complications: None/effective block Vitals: Vital Signs/O2 Sat/Glucose, Most Recent Temp Pulse Resp BP Pulse Ox 98.9 F 73 16 114/65 95 12/02/17 07:37 12/02/17 09:06 12/02/17 09:06 12/02/17 09:06 12/02/17 09:06 Blood Glucose* 151
[2017-12-02] MEDS ORDERED: Ondansetron 4 MG/2 ML VIAL IVP ONE (09:12)
[2017-12-02] MEDS ORDERED: *HR* HYDROmorphone (PF) 1 MG/ML SYRINGE IVP PRN (09:12)
[2017-12-02] MEDS ORDERED: *HR* OxyCODONE/APAP 5/325 TABLET PO PRN (09:12)
[2017-12-02] MEDS ORDERED: *HR* Promethazine 25 MG/ML VIAL IVP PRN (09:12)
[2017-12-02] MEDS ORDERED: *HR* Propofol 200 MG/20 ML VIAL IVP ONE (09:57)
[2017-12-02] MEDS ORDERED: *HR* PHENYLEPHRINE 1,000 MCG/10 ML SYRINGE IVP ONE (09:57)
[2017-12-02] MEDS ORDERED: *HR* Midazolam HCl 2 MG/2 ML VIAL ONE (09:57)
[2017-12-02] MEDS ORDERED: *HR* FentaNYL (PF) 100 MCG/2 ML VIAL ONE (09:57)
[2017-12-02] MEDS ORDERED: Lidocaine -MPF 2% 2 ML VIAL ONE (09:57)
[2017-12-02] MEDS ORDERED: Ondansetron 4 MG/2 ML VIAL ONE (10:26)
--- NOTE | 2017-12-02 10:27 | Orthopedic Operative Note ---
Date of procedure: 12/02/17 Pre-op diagnosis: Right shoulder cuff tear arthropathy Post-op diagnosis: same Procedure: Procedure: Total Shoulder Replacment Reverse, right Estimated blood loss: 50 cc Hardware: Metal and polyethylene replacement: Arthrex 24, +2 , 25 mm post glenoid baseplate, 2 4.5 screws. 2 5.5 screw, 9+4 glenosphere, 5 humeral stem, poly insert 3 Exam Under anesthesia: Full motion no instability Procedural Notes: Irreparable tear supraspinatus tendon. Operative procedure: The patient was brought to the operating room and placed on the operating room table. After general anesthesia was administered the operative shoulder was examined. Findings were noted. The patient was placed in the modified beachchair position. All pressure points were padded appropriately. And the head was stabilized in the neutral position. The operative extremity was prepped and draped in the sterile surgical fashion. The patient received IV antibiotics prior to skin incision. A standard deltopectoral approach was made to the operative shoulder. Incision was made to the skin and subcutaneous tissue,hemo stasis was obtained with Bovie cautery. Using careful blunt dissection the cephalic vein was identified and mobilized medially. The deltopectoral interval was developed and the clavipectoral fascia was incised. The subscap was released off the lesser tuberosity and tagged with #2 FiberWire suture was Irreparable. The humerus was dislocated patient noted to have irreparable tear supraspinatus tendon, and the humeral cut was made along the anatomic neck. Anterior and posterior Bankart retractors were placed to expose the glenoid. The glenoid guide was seated and the centering hole was made. It was reamed with the appropriate reamer. The 24, +2, 25 mm post was seated and secured with (2) 4.5 screws and 2 5.5 screw. The baseplate was irrigated and dried and the 39+4 Glenosphere was seated and secured with the Tran taper. The Tran taper was tested and found to be secure the humerus was redislocated and prepared with the diaphyseal reamers, followed by a broaching process up to the appropriate size 5 in the patient's anatomic version. The metaphyseal reamer was then utilized. Trial reduction found the shoulder to be relocatable. Trial components were removed and 5 stem was impacted in place in the patient's anatomic version. Trial reduction found the shoulder to be relocatable and stable with the appropriate 3 Trial component was removed and the real implant was seated and secured the shoulder was reduced. The shoulder had excellent motion and excellent stability and no evidence of dislocation. The deep tissue was irrigated with pulse irrigation. The PA close the shoulder. The deltopectoral interval was closed with a running #1 PDS suture, subcutaneous tissue was irrigated and closed with 0 PDS suture, the skin was closed with Dermabond. The patient was placed in a sterile dressing, abduction brace and extubated. The patient was then transferred to the recovery room in stable condition. Anesthesia: GETA Surgeon: Jaycob Davis Was there an library circulation assistant present: Yes Clinical Laboratory Aide: Catie Wang Estimated blood loss (cc): 50 Condition: stable Disposition: PACU
--- NOTE | 2017-12-02 11:14 | Anesthesia Evaluation Post Op ---
Date of Encounter: 12/02/17 Time of Encounter: 11:12 - Vital Signs Vital Signs: Vital Signs/O2 Sat/Glucose, Most Recent Temp Pulse Resp BP Pulse Ox 97.2 F L 70 16 132/67 95 12/02/17 10:43 12/02/17 11:03 12/02/17 11:03 12/02/17 11:03 12/02/17 11:03 Blood Glucose* 118 - Lungs Lungs: Rhonchi - Airway Airway: Non-obstructed - Cardiovascular Regular Rate - Mental Status Mental Status: Alert & Oriented, Answers Appropriately - Pain Pain Scale: 0 Pain Scale used: Numeric (1 - 10) - Nausea Vomiting Nausea Vomiting: Not Present - Hydration Hydration: Ice chips, Has not voided Notes: 12/02/17 11:13 NKDA - Discharge PostOp Status: Transfer Patient to floor
[2017-12-02] MEDS ORDERED: Ondansetron 4 MG/2 ML VIAL IVP PRN (11:51)
[2017-12-02] MEDS ORDERED: tiZANidine 4 MG TABLET PO PRN (11:51)
[2017-12-02] MEDS ORDERED: Naloxone 0.4 MG/ML INJ IVP PRN (11:51)
[2017-12-02] MEDS ORDERED: Temazepam 15 MG CAPSULE PO PRN (11:51)
[2017-12-02] MEDS ORDERED: Dextrose Gel 15 GM/37.5 ML TUBE PO PRN ×2 (11:51)
[2017-12-02] MEDS ORDERED: MOM Conc 10 ML UD.LIQ PO PRN (11:51)
[2017-12-02] MEDS ORDERED: Ringers Solution, Lactated 1,000 ML IVC SCH (11:51)
[2017-12-02] MEDS ORDERED: *HR* Dextrose 50 % in Water (Syg) 50 ML SYRINGE IVP PRN (11:51)
[2017-12-02] MEDS ORDERED: Sennosides 8.6 MG TABLET PO PRN (11:51)
[2017-12-02] MEDS ORDERED: Nitroglycerin 0.4 MG TAB.SUBL SL PRN (11:51)
[2017-12-02] MEDS ORDERED: traMADol 50 MG TABLET PO PRN (11:51)
[2017-12-02] MEDS ORDERED: D5% in Water 1,000 ML IVC PRN (11:51)
[2017-12-02 12:07] LABS: Hematocrit 43.4 % (35.3-44.9)
--- NOTE | 2017-12-02 12:17 | Physician Discharge Referral ---
Home Health/Hosp Referral Info Transfer to: Home Health Provider in Charge Post Discharge: PCP - Diagnosis (1) Status post reverse total arthroplasty of right shoulder Priority: Primary Status: Acute (2) Rotator cuff arthropathy of right shoulder Priority: Primary Status: Chronic (3) COPD (chronic obstructive pulmonary disease) Status: Chronic (4) Smoker Status: Chronic (5) JOJO (obstructive sleep apnea) Status: Chronic (6) Mixed hyperlipidemia Status: Chronic (7) Diabetes mellitus type 2 with complications Status: Chronic (8) Essential hypertension Status: Chronic - Respiratory Orders None Smoking Cessation: Smoking cessation has been advised. For more information, call the [place] Tobacco Quit Line at 2-228-IPOM-NOW. - Diet/Nutrition Diet/Nutrition Orders: Regular - Activity Activity Orders: Up ad pawel, Ambulate - Services Needed Following services are medically necessary services: Nursing, Home Health Aide, Physical Therapy, Occupational Therapy Home Care Orders: Opsite dressing, leave intact until first post-operative visit. Zipline in place , plan to remove at post-operative day #14-16. If dressing becomes >50% saturated, contact office, remove dressing and place appropriate dressing in its place. Do not allow for dressing to get wet. Shoulder Precautions x 6 weeks. Apply cold therapy wrap 3-6x/day for 20 minutes at a time. Encourage ambulation throughout the day. Use Incentive spirometer 10x/hour. Elevate affected extremity above heart as tolerated. NWB to affected upper extremity x 6 weeks. Will remove brace at first post-operative appointment. OK to remove during PT/ OT and Home exercises. - Transfer Medications Home Medications: Aspirin Enteric Coated [Aspirin EC] 81 mg PO DAILY 01/23/15 [History] Calcium Carbonate/Vitamin D2 [Ra Oyster Shell-Vitamin D Tab] 1 tab PO BID [History] Carvedilol 3.125 mg PO BID 12/24/15 [History] Cholecalciferol (D-3) [Vitamin D] 2,000 unit PO DAILY 12/24/15 [History] Fluticasone Propionate Nasal [Flonase] 50 mcg NS DAILY 12/24/15 [History] Lisinopril [Zestril] 40 mg PO DAILY 12/24/15 [History] Meloxicam 15 mg PO DAILY 12/24/15 [History] Sertraline [Zoloft] 100 mg PO DAILY 12/24/15 [History] Simvastatin [Zocor] 40 mg PO HS 12/24/15 [History] Omeprazole [PriLOSEC] 40 mg PO DAILY 03/31/17 [History] OxyCODONE Immed Rel [Roxicodone 5 MG] 5 mg PO Q6HR PRN 7 Days #28 tablet [Rx] Acetaminophen [Tylenol Arthritis] 650 mg PO Q6H PRN 12/02/17 [History] Albuterol Sulfate [Albuterol Inhaler] 2 puff IH Q4H PRN 12/02/17 [History] Fenofibrate Nanocrystallized [Triglide] 160 mg PO DAILY 12/02/17 [History] Gabapentin [Neurontin] 300 mg PO TID 12/02/17 [History] Metformin HCl [Glucophage] 1,000 mg PO BID 12/02/17 [History] Nitroglycerin 1 tab PO AD 12/02/17 [History] [place]-3/Dha/Epa/Fish Oil [Fish Oil 1,000 mg Softgel] 1 each PO DAILY 12/02/17 [ History] Omeprazole [PriLOSEC] 40 mg PO DAILY 12/02/17 [History] Promethazine [Phenergan] 25 mg PO Q6HR PRN 12/02/17 [History] Tizanidine HCl [Zanaflex] 4 mg PO TID PRN 12/02/17 [History] Umeclidinium [place] [Incruse Ellipta] 62.5 mcg IH DAILY 12/02/17 [History] hydrOXYzine HCl [Hydroxyzine HCl] 100 mg PO HS 12/02/17 [History] Allergies/Adverse Reactions: 3 Allergy/AdvReac Type Severity Reaction Status Date / Time No Known Allergies Allergy Verified 12/02/17 08:30 Certification: Further, I certify that my clinical findings support that this patient is homebound (i.e. absences from home require considerable and taxing effort and are for medical reasons or jainism services or infrequently or short duration when for other reasons) because: Homebound Reason: Post-surgery restriction and or conditions limit ability to leave home Attestation: My signature below is to certify that this patient is under my care and that I, or nurse practitioner, or a physician's printer's assistant working with me, has a face-to -face encounter with this patient.
[2017-12-02] MEDS: Insulin LISPRO 300 UNITS/3 ML VIAL SQ SCH ×3 (12:28→21:57)
[2017-12-02] MEDS: *HR* Metformin 500 MG TABLET PO SCH (16:13)
[2017-12-02] MEDS: Gabapentin 300 MG CAPSULE PO SCH ×2 (16:13→21:54)
[2017-12-02] MEDS: *HR* Enoxaparin 30 MG/0.3 ML SYRINGE SQ SCH (16:14)
[2017-12-02] MEDS ORDERED: *HR* Enoxaparin 30 MG/0.3 ML SYRINGE SQ SCH (18:00)
[2017-12-02] MEDS: hydrOXYzine pamoate 25 MG CAPSULE PO SCH (21:54)
[2017-12-03 01:12] LABS: Hematocrit 37.3 % (35.3-44.9)
[2017-12-03 01:17] LABS: Hemoglobin 12.4 g/dL (11.5-15.4)
[2017-12-03] MEDS: *HR* OxyCODONE/APAP 5/325 TABLET PO PRN ×2 (02:03→07:39)
[2017-12-03] MEDS: *HR* Enoxaparin 30 MG/0.3 ML SYRINGE SQ SCH ×2 (05:43→16:57)
[2017-12-03] MEDS: Fenofibrate 54 MG TABLET PO SCH (07:39)
[2017-12-03] MEDS: *HR* Metformin 500 MG TABLET PO SCH ×2 (07:40→16:57)
[2017-12-03] MEDS: Gabapentin 300 MG CAPSULE PO SCH ×3 (07:40→19:54)
[2017-12-03] MEDS: Cholecalciferol (D-3) 1,000 UNIT TABLET PO SCH (07:40)
[2017-12-03] MEDS: Aspirin Enteric Coated 81 MG Tablet PO SCH (07:40)
[2017-12-03] MEDS: Lisinopril 20 MG TABLET PO SCH (07:40)
--- NOTE | 2017-12-03 07:48 | Orthopedics Progress Note ---
Date of Encounter: 12/03/17 Time of Encounter: 07:46 - Assessment and Plan (1) Status post reverse total arthroplasty of right shoulder Current Visit: No Status: Acute (2) Rotator cuff arthropathy of right shoulder Current Visit: No Status: Chronic (3) COPD (chronic obstructive pulmonary disease) Current Visit: No Status: Chronic Qualifiers: COPD type: unspecified COPD Qualified Code(s): J44.9 - Chronic obstructive pulmonary disease, unspecified (4) Smoker Current Visit: No Status: Chronic (5) JOJO (obstructive sleep apnea) Current Visit: No Status: Chronic (6) Mixed hyperlipidemia Current Visit: No Status: Chronic (7) Diabetes mellitus type 2 with complications Current Visit: No Status: Chronic Qualifiers: 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 A&Ox3 Afebrile, vital signs stable. Operative extremity: Neurovascularly intact Dressing clean dry and intact forearm nontender Assessment and plan: Continue with postoperative care Hemoglobin stable 12.3/37.3 Hypertension noted; discussed with patient, plan to f/up with PCP - asympo at this time Plan: D/C today Objective Vital signs: Vital Signs Temp Pulse Resp BP Pulse Ox 12/03/17 07:12 98.6 F 78 16 177/97 94 12/03/17 04:26 97.6 F 64 18 142/72 96 12/02/17 22:54 98.2 F 63 17 156/90 95 12/02/17 19:03 98.6 F 73 17 152/75 95 12/02/17 14:45 98.4 F 80 15 145/80 93 12/02/17 12:42 97.6 F 76 16 138/68 96 12/02/17 11:58 97.9 F 72 16 132/63 94 12/02/17 11:42 97.6 F 74 16 139/69 97 12/02/17 11:13 97.3 F L 69 18 144/59 96 12/02/17 11:03 70 16 132/67 95 12/02/17 10:53 68 18 132/55 95 12/02/17 10:43 97.2 F L 70 12 145/69 96 12/02/17 09:06 73 16 114/65 95 12/02/17 08:46 77 16 133/72 96 Intake and Output 12/02/17 12/02/17 12/03/17 15:59 23:59 07:59 Intake Total 20 / 20 920 / 920 375 / 375 Output Total 50 / 50 400 / 400 250 / 250 Balance -30 / -30 520 / 520 125 / 125 Intake: IV Fluids 20 / 20 100 / 100 Ancef Syringe 2,000 MG/20 ML 2, 20 / 20 000 mg In 20 ml @ 200 mls/hr IVPB PREOP ONE Rx#:[id number] Ancef 2,000 MG In 0.9 % Sodium 100 / 100 Chloride 100 ML @ 200 mls/hr IVPB Q8HR ALEXIS Rx#:[id number] Oral 820 / 820 375 / 375 Output: Urine 400 / 400 250 / 250 Estimated Blood Loss 50 / 50 Other: # Voids 1 1 Weight 67.2 kg Blood Glucose* 118 200 Patient Weight 12/03/17 23:59 Weight 67.2 kg - Labs CBC & BMP: 12/03/17 01:00 Labs: Abnormal lab results POC Glucose 200 mg/dL (70-99) H 12/02/17 19:28 - VTE Documentation of Mechanical Device: Venous foot pump, device Consult Discharge Plan - Plan Instructions: Joint Replacement Surgery (GEN) Referrals: Carmen Espinoza [Primary Care Provider] -
[2017-12-03] MEDS: Insulin LISPRO 300 UNITS/3 ML VIAL SQ SCH ×4 (08:05→21:43)
[2017-12-03] MEDS: Fluticasone Propionate Nasal 50 MCG/SPRAY BOTTLE NS SCH (08:06)
[2017-12-03] MEDS ORDERED: NON-FORMULARY MEDICATION 1 EACH EACH (Omeprazole [Prilosec] 40 MG) PO SCH (09:00)
[2017-12-03] MEDS ORDERED: NON-FORMULARY MEDICATION 1 EACH EACH (Omega-3/Dha/Epa/Fish Oil [Fish Oil 1,000 Mg Softgel] PO SCH (09:00)
[2017-12-03] MEDS: *HR* OxyCODONE Immed Rel 5 MG TABLET PO PRN ×3 (10:52→19:52)
[2017-12-03] MEDS: Nicotine 14 MG PATCH.TD24 TD SCH (11:32)
[2017-12-03 12:39] LABS: BUN/Creatinine Ratio 11 (6-26); Blood Urea Nitrogen 9 mg/dL (8-23); Calcium 9.7 mg/dL (8.6-10.3); Carbon Dioxide 23 mEq/L (23-29); Chloride 101 mEq/L (98-107); Glucose 264 mg/dL (70-105); Osmolality,Calculated 288 (280-300); Potassium 3.9 mEq/L (3.5-5.1); Sodium 135 mEq/L (136-145); eGFR For Non-African Americans > 60 (> 60)
[2017-12-03] MEDS ORDERED: hydrALAZINE 10 MG TABLET PO ONE (14:18)
--- NOTE | 2017-12-03 15:46 | Internal Medicine Consult Note ---
Date of Encounter: 12/03/17 Time of Encounter: 14:00 - Assessment and plan (1) Essential hypertension Current Visit: No Status: Chronic Assessment and plan: Review of the EMR during this patients hospitalization reveals systolic pressures between 130s and 180 on average diastolics generally controlled. Patient is blood pressure however late this morning elevated to 184/112. Patient and significant other thinks secondary to pain after physical therapy. She was given a dose of hydralazine 10 mg IV at approximately 1400 and blood pressure at approximately 1530 was 149/87 Continue to monitor on patient's home regimen with lisinopril 40 mg daily and Coreg 3.125 mg twice daily. Pain control continued by orthopedics (2) Status post reverse total arthroplasty of right shoulder Current Visit: No Status: Acute Assessment and plan: Management and pain control per orthopedics (3) Diabetes mellitus type 2 with complications Current Visit: No Status: Chronic Qualifiers: Diabetes mellitus longterm insulin use: unspecified longterm insulin use status Qualified Code(s): E11.8 - Type 2 diabetes mellitus with unspecified complications (4) Mixed hyperlipidemia Current Visit: No Status: Chronic Assessment and plan: Continue [employer] - Time Spent With Patient Total time spent is greater than 50% in coordination of care (as documented) at patient's floor/unit and/or counseling patient: Internal Medicine - CN: HPI - Data of Consult Consult date: 12/03/17 Requesting Physician: Jaycob Davis MD - Consult Narrative Reason for consult: Uncontrolled hypertension History of present illness: Patient is a 62-year-old female with past medical history severe for cardiomyopathy, hypertension, diabetes, COPD and smoker who is status post day 1 of total right shoulder replacement. Hospitalist service consulted due to uncontrolled hypertension. Patient and significant other at bedside reports that patients blood pressures have been relatively controlled and that she has been on the same dosage of her Coreg and lisinopril for years. Review of the EMR during this patients hospitalization reveals systolic pressures between 130s and 180 on average diastolics generally controlled. Patient'sblood pressure however late this morning elevated to 184/112. Patient and significant other thinks secondary to pain after physical therapy. Past Med Surg Social Fam HX - Past Medical History Medical history: asthma, cardiomyopathy, COPD, CVA, diabetes, GERD, hyperlipidemia, hypertension Additional medical history: Insomnia. JOJO. Heart Palpitation. Melanoma. Urethral stenosis Psychiatric history: anxiety, depression - Past Surgical History Surgical History: other Additional surgical history: gall stones removed. jaw broken 1969. left foot sx 1958. knots on right foot removed 1958. bladder sling 1991. PLIF L5-S1 2013. spine 2018 - Social History Smoking Status: Current every day smoker Packs per day: 1 Smokeless Tobacco Status: No Alcohol use: none Drug use: marijuana - Family History Mother Hx Family Cardiac Disorders: No Hx Family Respiratory Disorders: No Hx Family Cancer: Yes (lung) Hx Family GI Disorders: Yes (pulips) Hx Family Endocrine Disorder: No Hx Family Neuromuscular Disorders: No Hx Family Neurologic Disorders: No Hx Family HEENT Disorders: No Hx Family Autoimmune Disorders: No All systems: reviewed and no additional remarkable complaints except as stated Internal Medicine - CN: Meds Aspirin Enteric Coated [Aspirin EC] 81 mg PO DAILY 01/23/15 [History] Calcium Carbonate/Vitamin D2 [Ra Oyster Shell-Vitamin D Tab] 1 tab PO BID [History] Carvedilol 3.125 mg PO BID 12/24/15 [History] Cholecalciferol (D-3) [Vitamin D] 2,000 unit PO DAILY 12/24/15 [History] Fluticasone Propionate Nasal [Flonase] 50 mcg NS DAILY 12/24/15 [History] Lisinopril [Zestril] 40 mg PO DAILY 12/24/15 [History] Sertraline [Zoloft] 100 mg PO DAILY 12/24/15 [History] Simvastatin [Zocor] 40 mg PO HS 12/24/15 [History] Omeprazole [PriLOSEC] 40 mg PO DAILY 03/31/17 [History] OxyCODONE Immed Rel [Roxicodone 5 MG] 5 mg PO Q6HR PRN 7 Days #28 tablet [Rx] Acetaminophen [Tylenol Arthritis] 650 mg PO Q6H PRN 12/02/17 [History] Albuterol Sulfate [Albuterol Inhaler] 2 puff IH Q4H PRN 12/02/17 [History] Fenofibrate Nanocrystallized [Triglide] 160 mg PO DAILY 12/02/17 [History] Gabapentin [Neurontin] 300 mg PO TID 12/02/17 [History] Metformin HCl [Glucophage] 1,000 mg PO BID 12/02/17 [History] Nitroglycerin 1 tab PO AD 12/02/17 [History] [place]-3/Dha/Epa/Fish Oil [Fish Oil 1,000 mg Softgel] 1 each PO DAILY 12/02/17 [ History] Omeprazole [PriLOSEC] 40 mg PO DAILY 12/02/17 [History] Promethazine [Phenergan] 25 mg PO Q6HR PRN 12/02/17 [History] Tizanidine HCl [Zanaflex] 4 mg PO TID PRN 12/02/17 [History] Umeclidinium [place] [Incruse Ellipta] 62.5 mcg IH DAILY 12/02/17 [History] hydrOXYzine HCl [Hydroxyzine HCl] 100 mg PO HS 12/02/17 [History] 3 Allergy/AdvReac Type Severity Reaction Status Date / Time No Known Allergies Allergy Verified 12/02/17 08:30 Hospitalist - CN: Exam - Constitutional Vitals: Temp Pulse Resp BP Pulse Ox 97.8 F 103 16 149/87 94 12/03/17 15:37 12/03/17 15:37 12/03/17 15:37 12/03/17 15:37 12/03/17 15:37 General appearance IM: Present: A&O X 3, no acute distress Exam: As above - Head Head exam: Present: normocephalic - Eye Eye exam: Present: normal appearance - ENT ENT exam: Present: mucous membranes moist - Respiratory Respiratory exam: Present: CTAB. Absent: accessory muscle use, respiratory distress Additional comments: Anterior lung medrano clear to auscultation bilaterally - Cardiovascular Cardiovascular exam IM: Present: RRR, +S1, +S2 - GI/Abdominal GI/Abdominal exam IM: Present: soft. Absent: distended, tenderness ( ) - Extremities Exam Extremities exam IM: Absent: pedal edema - Neurological Exam Neurological exam: Present: oriented X3 - Psychiatric Psychiatric exam: Present: normal mood - Skin Skin exam IM: Present: normal color Internal Medicine - CN: Reslt - Labs CBC & Chem 7: 12/03/17 01:00 12/03/17 11:44 Labs: Short CBC 12/03/17 Range/Units 01:00 Hgb 12.4 D (11.5-15.4) g/dL Hct 37.3 (35.3-44.9) % BMP 12/03/17 11:44 Sodium 135 L Potassium 3.9 Chloride 101 Carbon Dioxide 23 BUN 9 Creatinine 0.83 Glucose 264 H Calcium 9.7 Consult Discharge Plan - Plan Instructions: Joint Replacement Surgery (GEN) Additional Instructions: Discharge Instructions: Total Shoulder Please call [facility] ([phone]), your Primary Care Physician, or report to the Emergency Room if you have any of the following symptoms: Nausea, vomiting, fever greater that 101.5, swelling, chest pain, shortness of breath, increased pain/redness/drainage/odor for your incision site, numbness/ tingling, or any other concerning symptoms. ACTIVITY: Always keep your arm in the sling. Do not raise your arm away from your body. Do not use your arm to help with getting in or out of bed. No weight bearing permitted. Only perform those exercises given to you by your therapist. Incentive Spirometer 10 times an hour. MEDICATIONS: Upon discharge resume your home medications. Take all the medications as prescribed. Take a stool softener if taking narcotic pain medications. Stool softeners are only effective if you drink enough fluids. Drink 6-8 glass of water or fluids a day, unless this is not allowed for another health problem. Despite using stool softeners, if you haven't had a bowel movement in 3 days, please switch to a gentle laxative. Gentle laxatives are sold over the counter. You should have a bowel movement within 24 hours, if not call the office. You will be discharged from the hospital with a prescription for pain medication. You are encouraged to decrease the use of narcotic pain medication as tolerated. Should you require a refill, please call the office. [facility] prescribes narcotic pain medication for only 4-6 weeks after surgery. If you require pain medication beyond this time period, you may be referred to your Primary Care Physician or to the Pain Clinic for further evaluation. Plan ahead for refills on pain medication as many narcotics either need to be picked up at the office or mailed. It is best to call 48-72 hours in advance of needing a prescription refill so you don't run out of medication. To help control the post-operative pain, you may take NSAIDs (Aleve,Advil, Motrin, Ibuprofen, Naprosyn) or Tylenol as prescribed on the bottle in addition to the pain medication. WOUND CARE: Leave the dressing on for 7-10 days. You may change the dressing if it becomes saturated greater than 50%. Do not get the dressing wet at anytime. Wash your hands with antibacterial soap, rinse and dry prior to any wound care. If you have dustin the visiting nurse or rehab facility can remove the stapes 10-14 days after surgery and place steri-strips across the wound. Leave the steri-strips in place until they fall off on their own. You may let water from the shower run on top of the steri-strips. If you do not have a visiting nurse or rehab facility, you will need to return to the office at 10-14 days for the dustin to be removed. If you have itching or redness around the dressing call the office. FOLLOW-UP: Please follow up with your surgeon in the orthopedic clinic, as scheduled Referrals: Carmen Espinoza [Primary Care Provider] -
[2017-12-03] MEDS: hydrOXYzine pamoate 25 MG CAPSULE PO SCH (19:53)
[2017-12-04] MEDS: *HR* OxyCODONE Immed Rel 5 MG TABLET PO PRN ×2 (01:24→05:30)
[2017-12-04 01:54] LABS: Hematocrit 37.6 % (35.3-44.9); Hemoglobin 12.5 g/dL (11.5-15.4)
[2017-12-04] MEDS: *HR* Enoxaparin 30 MG/0.3 ML SYRINGE SQ SCH (05:30)
[2017-12-04] MEDS: Cholecalciferol (D-3) 1,000 UNIT TABLET PO SCH (08:21)
[2017-12-04] MEDS: Gabapentin 300 MG CAPSULE PO SCH (08:21)
[2017-12-04] MEDS: Lisinopril 20 MG TABLET PO SCH (08:21)
[2017-12-04] MEDS: Aspirin Enteric Coated 81 MG Tablet PO SCH (08:21)
[2017-12-04] MEDS: Fenofibrate 54 MG TABLET PO SCH (08:21)
[2017-12-04] MEDS: *HR* Metformin 500 MG TABLET PO SCH (08:21)
[2017-12-04] MEDS: Fluticasone Propionate Nasal 50 MCG/SPRAY BOTTLE NS SCH (08:22)
[2017-12-04] MEDS: Insulin LISPRO 300 UNITS/3 ML VIAL SQ SCH (08:30)
[2017-12-04] MEDS: Nicotine 14 MG PATCH.TD24 TD SCH (08:30)
[2017-12-04] MEDS ORDERED: Nicotine 14 MG PATCH.TD24 TD SCH (09:00)
[2017-12-04 10:38] VITALS: BP 134/73
--- NOTE | 2017-12-04 11:51 | Internal Med Progress Note ---
Hospitalist Progress Note - Encounter Date of Encounter: 12/04/17 Time of Encounter: 11:00 - Subjective Interval History: Patient's blood pressures have improved and are close to within normal limits for approximately 24 hours on patient's home regimen of blood pressure medications (Coreg and lisinopril). Suspect elevated blood pressures yesterday secondary to pain which was uncontrolled; patient was given a one-time dose of IV hydralazine yesterday on initial evaluation. - Exam Vitals: Temp Pulse Resp BP Pulse Ox 98 F 84 16 134/73 95 12/04/17 10:00 12/04/17 10:00 12/04/17 10:00 12/04/17 10:00 12/04/17 10:00 Exam: As above - Assessment and Plan (1) Essential hypertension Current Visit: No Status: Chronic Assessment and Plan: Review of the EMR during this patients hospitalization reveals systolic pressures between 130s and 180 on average diastolics generally controlled. Patient is blood pressure however late yesterday morning was elevated to 184/ 112. She was given a dose of hydralazine 10 mg IV at approximately 1400 and blood pressure at approximately 1530 was 149/87 Overnight, patient's home regimen with lisinopril 40 mg daily and Coreg 3.125 mg twice daily were continued Patient's blood pressure this morning 134/73 Patient okay to follow-up with primary care provider as an outpatient for continued hypertension management and to continue her home regimen of blood pressure medications. Hospitalist service will sign off and thank you for allowing us to partake in patient's care. Please call with any further questions. (2) Status post reverse total arthroplasty of right shoulder Current Visit: No Status: Acute Assessment and Plan: Management and pain control per orthopedics - Time Spent with Patient Total time spent is greater than 50% in coordination of care (as documented) at patient's floor/unit and/or counseling patient: Internal Medicine: Result - Labs CBC & Chem 7: 12/04/17 01:08 12/03/17 11:44 Labs: Short CBC 12/04/17 Range/Units 01:08 Hgb 12.5 (11.5-15.4) g/dL Hct 37.6 (35.3-44.9) % BMP 12/03/17 11:44 Sodium 135 L Potassium 3.9 Chloride 101 Carbon Dioxide 23 BUN 9 Creatinine 0.83 Glucose 264 H Calcium 9.7 - Impressions Impressions Shoulder X-Ray 12/03/17 13:38 IMPRESSION: Stable right shoulder arthroplasty. D/ / 12/03/2017 16:55:49 Addy Ayala MD / chrissy Interpreting Provider: Addy Ayala MD - VTE Documentation of Mechanical Device: Venous foot pump, device Consult Discharge Plan - Plan Instructions: Joint Replacement Surgery (GEN) Additional Instructions: Discharge Instructions: Total Shoulder Please call [facility] ([phone]), your Primary Care Physician, or report to the Emergency Room if you have any of the following symptoms: Nausea, vomiting, fever greater that 101.5, swelling, chest pain, shortness of breath, increased pain/redness/drainage/odor for your incision site, numbness/ tingling, or any other concerning symptoms. ACTIVITY: Always keep your arm in the sling. Do not raise your arm away from your body. Do not use your arm to help with getting in or out of bed. No weight bearing permitted. Only perform those exercises given to you by your therapist. Incentive Spirometer 10 times an hour. MEDICATIONS: Upon discharge resume your home medications. Take all the medications as prescribed. Take a stool softener if taking narcotic pain medications. Stool softeners are only effective if you drink enough fluids. Drink 6-8 glass of water or fluids a day, unless this is not allowed for another health problem. Despite using stool softeners, if you haven't had a bowel movement in 3 days, please switch to a gentle laxative. Gentle laxatives are sold over the counter. You should have a bowel movement within 24 hours, if not call the office. You will be discharged from the hospital with a prescription for pain medication. You are encouraged to decrease the use of narcotic pain medication as tolerated. Should you require a refill, please call the office. [facility] prescribes narcotic pain medication for only 4-6 weeks after surgery. If you require pain medication beyond this time period, you may be referred to your Primary Care Physician or to the Pain Clinic for further evaluation. Plan ahead for refills on pain medication as many narcotics either need to be picked up at the office or mailed. It is best to call 48-72 hours in advance of needing a prescription refill so you don't run out of medication. To help control the post-operative pain, you may take NSAIDs (Aleve,Advil, Motrin, Ibuprofen, Naprosyn) or Tylenol as prescribed on the bottle in addition to the pain medication. WOUND CARE: Leave the dressing on for 7-10 days. You may change the dressing if it becomes saturated greater than 50%. Do not get the dressing wet at anytime. Wash your hands with antibacterial soap, rinse and dry prior to any wound care. If you have dustin the visiting nurse or rehab facility can remove the stapes 10-14 days [address] surgery [address] steri-strips across the wound. Leave the steri-strips in place until they fall off on their own. You may let water from the shower run on top of the steri-strips. If you do not have a visiting nurse or rehab facility, you will need to return to the office at 10-14 days for the dustin to be removed. If you have itching or redness around the dressing call the office. FOLLOW-UP: Please follow up with your surgeon in the orthopedic clinic, as scheduled Referrals: Carmen Espinoza [Primary Care Provider] -
--- NOTE | 2017-12-06 21:14 | Electrocardiograph Report ---
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
== END 2017-12-04 12:16 | disposition home health service (06) | DRG 315 ==
LOC: SAMDAY 07:23 → 3NENU 11:28
PROVIDERS: ADMIT Orthopaedic Surgery; ATTEND Orthopaedic Surgery

== ENCOUNTER 2021-10-21 08:12 | Inpatient (IN) ==
[2021-10-21] MEDS ORDERED: *HR* OxyCODONE Immed Rel 5 MG TABLET PO ONE (09:00)
[2021-10-21] MEDS ORDERED: tiZANidine 4 MG TABLET PO SCH (09:00)
[2021-10-21] MEDS ORDERED: Pregabalin 75 MG CAPSULE PO ONE (09:00)
[2021-10-21] MEDS ORDERED: Famotidine 20 MG TABLET PO ONE (09:00)
[2021-10-21] MEDS ORDERED: CeFAZolin Syr 2,000MG/20 ML 2,000 MG/20 ML SYRINGE IVPB ONE (09:09)
[2021-10-21] MEDS ORDERED: Ringers Solution, Lactated 1,000 ML IVC SCH ×2 (09:15→19:04)
[2021-10-21] MEDS ORDERED: *HR* FentaNYL (PF) 100 MCG/2 ML VIAL IVP PRN (09:40)
[2021-10-21] MEDS ORDERED: *HR* OxyCODONE Immed Rel 5 MG TABLET PO PRN (09:40)
[2021-10-21] MEDS ORDERED: Albuterol 2.5 MG/3 ML NEBULIZER IH ONE ×3 (09:40→17:27)
[2021-10-21] MEDS ORDERED: *HR* HYDROmorphone PF 0.5 MG/0.5 ML SYRINGE IVP PRN (09:40)
[2021-10-21] MEDS ORDERED: Ondansetron 4 MG/2 ML VIAL IVP PRN ×2 (09:40→19:04)
[2021-10-21] MEDS ORDERED: Ondansetron 4 MG/2 ML VIAL ONE (10:12)
[2021-10-21] MEDS ORDERED: *HR* Midazolam HCl 2 MG/2 ML VIAL ONE (10:12)
[2021-10-21] MEDS ORDERED: *HR* Propofol 200 MG/20 ML VIAL IVP ONE (10:12)
[2021-10-21] MEDS ORDERED: *HR* FentaNYL (PF) 100 MCG/2 ML VIAL ONE (10:12)
[2021-10-21] MEDS ORDERED: *HR* Succinylcholine 200 MG/10 ML VIAL IVP ONE (10:12)
[2021-10-21] MEDS ORDERED: Lidocaine -MPF 2% 5 ML VIAL ONE (10:14)
[2021-10-21] MEDS ORDERED: *HR* Remifentanil 2 MG VIAL IVP ONE (10:17)
[2021-10-21] MEDS ORDERED: Vancomycin 1,000 MG VIAL ONE (11:02)
[2021-10-21] MEDS ORDERED: *HR* Magnesium Sulfate 1 GM/2 ML VIAL ONE (14:11)
[2021-10-21] MEDS ORDERED: Acetaminophen IV 1,000 MG/100 ML BAG IVPB ONE (14:14)
[2021-10-21] MEDS ORDERED: *HR* HYDROMORPHONE 2 MG/ML VIAL ONE (15:26)
[2021-10-21] MEDS ORDERED: Naloxone 0.4 MG/ML INJ IVP PRN (19:04)
[2021-10-21] MEDS ORDERED: Acetaminophen 325 MG TABLET PO PRN (19:04)
[2021-10-21] MEDS: *HR* OxyCODONE Immed Rel 5 MG TABLET PO PRN (20:16)
[2021-10-22] MEDS: CeFAZolin 2 GM/120 ML BAG IVPB SCH ×2 (00:15→09:05)
[2021-10-22] MEDS: *HR* HYDROcodone/Acet 5/325 mg TABLET PO PRN (03:59)
[2021-10-22] MEDS: *HR* OxyCODONE Immed Rel 5 MG TABLET PO PRN ×3 (09:10→18:14)
[2021-10-22] MEDS ORDERED: Naloxone 0.4 MG/ML INJ IVP PRN (13:36)
[2021-10-22] MEDS ORDERED: Ringers Solution, Lactated 1,000 ML IVC SCH (13:45)
[2021-10-22] MEDS: Isosorbide MONOnitrate (24 HR) 30 MG TAB.ER.24H PO SCH (14:46)
[2021-10-22] MEDS: lisinopriL 20 MG TABLET PO SCH (14:46)
[2021-10-22] MEDS: Gabapentin 300 MG CAPSULE PO SCH ×2 (14:46→20:39)
[2021-10-22] MEDS: Metoprolol XL (24 HR) Succ 50 MG TAB.ER.24H PO SCH (14:46)
[2021-10-23] MEDS: *HR* OxyCODONE Immed Rel 5 MG TABLET PO PRN ×4 (02:11→22:02)
[2021-10-23] MEDS ORDERED: lisinopriL 20 MG TABLET PO SCH (09:00)
[2021-10-23] MEDS ORDERED: Metoprolol XL (24 HR) Succ 50 MG TAB.ER.24H PO SCH (09:00)
[2021-10-23] MEDS ORDERED: Isosorbide MONOnitrate (24 HR) 30 MG TAB.ER.24H PO SCH (09:00)
[2021-10-23] MEDS: Cholecalciferol (D-3) 1,000 UNIT (25MCG) TABLET PO SCH (10:24)
[2021-10-23] MEDS: Metoprolol XL (24 HR) Succ 50 MG TAB.ER.24H PO SCH (10:24)
[2021-10-23] MEDS: Fenofibrate 54 MG TABLET PO SCH (10:24)
[2021-10-23] MEDS: Gabapentin 300 MG CAPSULE PO SCH ×3 (10:25→22:02)
[2021-10-23] MEDS: Isosorbide MONOnitrate (24 HR) 30 MG TAB.ER.24H PO SCH (10:25)
[2021-10-23] MEDS: lisinopriL 20 MG TABLET PO SCH (10:25)
[2021-10-23] MEDS: Cyanocobalamin (B-12) 1,000 MCG TABLET PO SCH (10:25)
[2021-10-23] MEDS ORDERED: hydrALAZINE 10 MG TABLET PO ONE (22:06)
[2021-10-24 06:49] VITALS: BP 166/96; PULSE 86; TEMP 97.6; O2SAT 96
[2021-10-24] MEDS: Gabapentin 300 MG CAPSULE PO SCH (07:54)
[2021-10-24] MEDS: Cholecalciferol (D-3) 1,000 UNIT (25MCG) TABLET PO SCH (07:54)
[2021-10-24] MEDS: Metoprolol XL (24 HR) Succ 50 MG TAB.ER.24H PO SCH (07:54)
[2021-10-24] MEDS: Isosorbide MONOnitrate (24 HR) 30 MG TAB.ER.24H PO SCH (07:55)
[2021-10-24] MEDS: *HR* OxyCODONE Immed Rel 5 MG TABLET PO PRN ×2 (07:55→12:14)
[2021-10-24] MEDS: Cyanocobalamin (B-12) 1,000 MCG TABLET PO SCH (07:55)
[2021-10-24] MEDS: lisinopriL 20 MG TABLET PO SCH (07:55)
[2021-10-24] MEDS: *HR* HYDROcodone/Acet 5/325 mg TABLET PO PRN (10:32)
[2021-10-24] MEDS: Fenofibrate 54 MG TABLET PO SCH (10:56)
== END 2021-10-24 12:17 | disposition home health service (06) | DRG 304 ==
LOC: SDCAOSI 08:12 → 4WAOSI 18:55
PROVIDERS: ADMIT Orthopaedic Surgery Orthopaedic Surgery of the Spine; ATTEND Orthopaedic Surgery Orthopaedic Surgery of the Spine